=== PATIENT | male | born 1995 | race Caucasian/White ===

== ENCOUNTER 2016-08-13 18:32 | Emergency (ER) | payer OTHER ==
[~2016-08-13] VITALS: Ht 172.7 cm; Wt 72.6 kg
[~2016-08-13 18:32] MED LIST: PEPCID40 MG PO
[2016-08-13 18:36] VITALS: BP 146/83
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
== END 2016-08-13 19:54 ==
LOC: ERH 18:32
DX: S20.212A Contusion of left front wall of thorax, initial encounter (principal); W51.XXXA Accidental striking against or bumped into by another person, initial encounter; Y93.61 Activity, american tackle football; Y92.9 Unspecified place or not applicable
CPT/HCPCS: 71100-LT

== ENCOUNTER 2017-11-16 17:08 | Emergency (ER) | payer OTHER ==
[~2017-11-16] VITALS: Ht 177.8 cm; Wt 70.3 kg
[2017-11-16 17:13] VITALS: BP 117/73
--- NOTE | 2017-11-16 17:31 | ED GI/GU/ABDOMINAL COMPLAINT ---
History of Present Illness General Chief Complaint: Male Genitourinary Problems Stated Complaint: UNABLE TO URINATE X 3 DAYS PER PT Source: patient, family Exam Limitations: no limitations Vital Signs & Intake/Output Vital Signs & Intake/Output Vital Signs Date Time Temp Pulse Resp B/P B/P Pulse O2 O2 Flow FiO2 Mean Ox Delivery Rate 11/16 1713 98.7 76 16 117/73 97 Room Air ED Intake and Output 11/17 0000 11/16 1200 Intake Total 0 Output Total Balance 0 Intake, Oral 0 Patient 155 lb Weight Weight Reported by Patient Measurement Method Allergies Coded Allergies: No Known Allergies (01/27/17) Reconcile Medications Doxycycline Hyclate 100 MG TABLET 1 TAB PO BID urine infection Triage Note: PT STATES HE IS HAVING LEFT SIDED PAIN FOR THE PAST 4 DAYS. PT STATES HE HASN'T BEEN ABLE TO EMPTY HIS BLADDER STATES HE HAS USED THE BATHROOM ONCE IN FOUR DAYS. Triage Nurses Notes Reviewed? yes Onset: Gradual Duration: day(s): Timing: recent history Quality/Severity: moderate HPI: 22-year-old male presents emergency department complaining of urinary retention, urinary frequency, and dysuria x 3-4 days. Patient states that he feels the urge to urinate however only urinates "dribbles" and feels as though there is more urine left in his bladder. HE also reports left flank/upper abdominal pain for 3-4 days. He denies fevers, chills, testicular pain, vomiting. The patient is sexually active with girlfriend who is present during this evaluation. Past History Travel History Traveled to [place] past 21 day No Medical History Any Pertinent Medical History? 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 No Review of Systems Review of Systems Constitutional: Reports: no symptoms. EENTM: Reports: no symptoms. Respiratory: Reports: no symptoms. Cardiovascular: Reports: no symptoms. GI: Reports: see HPI. Genitourinary: Reports: see HPI. Musculoskeletal: Reports: no symptoms. Skin: Reports: no symptoms. Neurological/Psychological: Reports: no symptoms. Hematologic/Endocrine: Reports: no symptoms. Immunologic/Allergic: Reports: no symptoms. All Other Systems: Reviewed and Negative Physical Exam Physical Exam General Appearance: well developed/nourished, no apparent distress, alert, awake Head: atraumatic, normal appearance Eyes: Bilateral: normal appearance. Ears, Nose, Throat, Mouth: hearing grossly normal Neck: normal inspection, supple, full range of motion Respiratory: normal breath sounds, no respiratory distress, lungs clear Cardiovascular: regular rate/rhythm Gastrointestinal: normal bowel sounds, soft, no organomegaly, LUQ tenderness without rebound or gaurding Rectal: deferred Back: normal inspection, normal range of motion, no CVA tenderness Extremities: normal range of motion Neurologic/Psych: awake, alert, oriented x 3 Skin: intact, normal color, warm/dry Core Measures ACS in differential dx? No Sepsis Present: No Sepsis Focused Exam Completed? No Progress Differential Diagnosis: bowel obstruction, epididymitis, gastritis, hernia, orchitis, prostatitis, peptic ulcer, pyelonephritis, SBO, STD, ureterolithiasis, urinary retention, urethritis, UTI/pyelo Plan of Care: Orders Procedure Date/time Status Add-on Test (ER Only) 11/16 1855 Active CULTURE,URINE 11/16 182 Active Straight Cath 11/16 181 Active CHLAMYDIA-GC DNA PROBE 11/16 171 Active URINALYSIS 11/16 171 Complete COMPREHENSIVE METABOLIC PANEL 11/16 171 Complete CBC WITHOUT DIFFERENTIAL 11/16 1712 Complete Laboratory Tests 11/16/17 1825: Urine Color YEL, Urine Clarity CLEAR, Urine pH 7.0, Ur Specific [place] 1.025, Urine Protein NEG, Urine Ketones NEG, Urine Nitrite NEG, Urine Bilirubin NEG, Urine Urobilinogen 1.0, Ur Leukocyte Esterase NEG, Ur Microscopic EXAM NOT REQUIRED, Urine Hemoglobin NEG, Urine Glucose NEG 11/16/17 181: Anion Gap 11, Estimated GFR > 60, BUN/Creatinine Ratio 16.0, Glucose 89, Calcium 9.7, Total Bilirubin 1.2, AST 17, ALT 25, Alkaline Phosphatase 64, Total Protein 7.3, Albumin 4.7, Globulin 2.6, Albumin/Globulin Ratio 1.8, CBC w Diff NO MAN DIFF REQ, RBC 5.06, MCV 89.9, MCH 30.6, MCHC 34.0, RDW 13.1, MPV 9.7, Gran % 76.6 H, Lymphocytes % 16.0 L, Monocytes % 6.9, Eosinophils % 0.2, Basophils % 0.3, Absolute Granulocytes 6.3, Absolute Lymphocytes 1.3, Absolute Monocytes 0.6 , Absolute Eosinophils 0, Absolute Basophils 0 Microbiology 11/16 1824 URINE ROUT: Urine Culture - RES 11/16 1824 URINE ROUT: GC DNA Probe - RECD 11/16 1824 URINE ROUT: Chlamydia DNA Probe (SHIMON) - RECD Bladder scan shows 290cc urine. CT scan is unremarkable, no stones or bladder distention. PAtient able to urinate here in ED to give urine sample. UA does not show evidence of UTI. This patient is young, there is a suspicion for STD. Also possible prostatitis, patient offered rectal exam however he declines. He was treated with Rocephin IM here in the emergency department and doxycycline. Patient informed of risk of prostatitis and will follow up with [facility] practice. He will return here with worsening symptoms or concerns. PAtient agrees with plan of care. Dr. Painter agrees with this plan. Diagnostic Imaging: Viewed by Me: CT Scan. Discussed w/RAD: CT Scan. Radiology Impression: PATIENT: KERRI STOUT JR PRESENT AGE: 22 PATIENT ACCOUNT NO: [id number] : 94 LOCATION: [facility] ORDERING PHYSICIAN: Poly BAUM SERVICE DATE: 11/16/17 EXAM TYPE: CAT - CT ABD & PELVIS W/O IV CONTRAS EXAMINATION: CT ABDOMEN AND PELVIS WITHOUT CONTRAST CLINICAL INFORMATION: Left flank pain with dysuria COMPARISON: 01/27/2017 TECHNIQUE: Multidetector volumetric imaging was performed from the superior aspect of the liver through the pubic symphysis. Sagittal and coronal reformatted images were obtained on the technologist's workstation. DLP: 279 mGy -cm FINDINGS: LUNG BASES: The visualized lung bases are unremarkable. LIVER, GALLBLADDER, AND BILIARY TREE: The liver is normal in size, shape, and attenuation. No focal hepatic lesion or biliary ductal dilatation is present. The gallbladder is unremarkable with no evidence of radiopaque gallstones, gallbladder wall thickening, or obvious pericholecystic inflammatory changes. PANCREAS: Unremarkable. SPLEEN: Unremarkable. ADRENAL GLANDS: Unremarkable. KIDNEYS AND URETERS: The kidneys are normal in size, shape, and attenuation. No hydronephrosis, hydroureter, or calculi seen. No perinephric stranding. BLADDER: Unremarkable. GASTROINTESTINAL TRACT: The small and large bowel are unremarkable. The appendix is unremarkable. ABDOMINAL WALL: No significant hernia is appreciated. LYMPH NODES: Normal. VASCULAR: Unremarkable. PELVIC VISCERA: Unremarkable. OSSEOUS STRUCTURES: Unremarkable. IMPRESSION: Unremarkable CT of the abdomen and pelvis. No renal or ureteral calculi. No hydronephrosis. DICTATED BY: Gato Weldon MD DATE/TIME DICTATED:11/16/171803 EMERGENCY COMMUNICATIONS DISPATCHER:SHANIA DATE/TIME TRANSCRIBED:11/16/171803 CONFIDENTIAL, DO NOT COPY WITHOUT APPROPRIATE AUTHORIZATION. <Electronically signed in Other Vendor System> SIGNED BY: Gato Weldon MD 11/16/171811 Initial ED EKG: none Departure Departure Disposition: HOME OR SELF CARE Condition: Stable Clinical Impression Primary Impression: Dysuria Secondary Impressions: Urinary frequency Referrals: Patient Has No Primary Care Dr (PCP/Family) Additional Instructions: Take antibiotics as prescribed. Follow up with your primary care doctor. We will call you if the results of your urine testing is abnormal. Return if worsening symptoms or concerns. Please note that there might be incidental findings in your evaluation that are unrelated to the current emergency department visit. Please notify your primary care doctor about this emergency department visit in order to obtain and review all of the testing performed so that these incidental findings can be monitored as needed. If you had an x-ray performed, please understand that some fractures may not be seen on the initial set of x-rays. If your symptoms persist you might need a repeat set of x-rays to check for such a fracture. If you had a laceration evaluated, please understand that foreign bodies such as glass or wood may not be visible to the naked eye or on plain x-rays. If the wound becomes red, swollen, increasingly more painful or if there is any drainage from the wound, please have it reevaluated by a physician for the possibility of a retained foreign body. If you're unable to follow up as outlined in the discharge instructions please return to the emergency department. Thank you for choosing the [facility] Emergency Department for your care. It was a pleasure to serve you today. Departure Forms: Customer Survey General Discharge Information Prescriptions: Current Visit Scripts Doxycycline Hyclate 1 TAB PO BID #20 TAB
--- NOTE | 2017-11-16 18:12 | CT SCAN REPORT ---
EXAMINATION: CT ABDOMEN AND PELVIS WITHOUT CONTRAST CLINICAL INFORMATION: Left flank pain with dysuria COMPARISON: 01/27/2017 TECHNIQUE: Multidetector volumetric imaging was performed from the superior aspect of the liver through the pubic symphysis. Sagittal and coronal reformatted images were obtained on the technologist's workstation. DLP: 279 mGy-cm FINDINGS: LUNG BASES: The visualized lung bases are unremarkable. LIVER, GALLBLADDER, AND BILIARY TREE: The liver is normal in size, shape, and attenuation. No focal hepatic lesion or biliary ductal dilatation is present. The gallbladder is unremarkable with no evidence of radiopaque gallstones, gallbladder wall thickening, or obvious pericholecystic inflammatory changes. PANCREAS: Unremarkable. SPLEEN: Unremarkable. ADRENAL GLANDS: Unremarkable. KIDNEYS AND URETERS: The kidneys are normal in size, shape, and attenuation. No hydronephrosis, hydroureter, or calculi seen. No perinephric stranding. BLADDER: Unremarkable. GASTROINTESTINAL TRACT: The small and large bowel are unremarkable. The appendix is unremarkable. ABDOMINAL WALL: No significant hernia is appreciated. LYMPH NODES: Normal. VASCULAR: Unremarkable. PELVIC VISCERA: Unremarkable. OSSEOUS STRUCTURES: Unremarkable. IMPRESSION: Unremarkable CT of the abdomen and pelvis. No renal or ureteral calculi. No hydronephrosis.
[2017-11-16 18:22] LABS: ABSOLUTE BASOPHIL COUNT 0 /CUMM (0.0-0.2); ABSOLUTE EOSINOPHIL COUNT 0 /CUMM (0.0-0.7); ABSOLUTE GRANULOCYTE CT 6.3 /CUMM (1.4-6.5); ABSOLUTE LYMPH COUNT 1.3 /CUMM (1.2-3.4); ABSOLUTE MONOCYTE COUNT 0.6 /CUMM (0.10-0.60); BASOPHIL % 0.3 % (0.0-2.0); EOSINOPHIL % 0.2 % (0-5); GRANULOCYTE % 76.6 % (42.2-75.2); HEMATOCRIT 45.5 % (42-52); MEAN CORPUSCULAR HGB 30.6 PG (27.0-31.0); MEAN CORPUSCULAR VOLUME 89.9 FL (80.0-94.0); MEAN PLATELET VOLUME 9.7 FL (7.4-10.4); PLATELET COUNT 203 /CUMM (130-400); RBC DISTRIBUTION WIDTH 13.1 % (11.5-14.5); RED BLOOD CELL CT 5.06 /CUMM (4.70-6.10); WHITE BLOOD CELL COUNT 8.2 /CUMM (4.8-10.8)
[2017-11-16] MEDS ORDERED: DOXYCYCLINE HY100 M4 PO (19:36)
== END 2017-11-16 20:04 ==
LOC: ERH 17:08
PROVIDERS: Physician Assistant
DX: R35.0 Frequency of micturition (principal); R30.0 Dysuria; J45.909 Unspecified asthma, uncomplicated; F17.210 Nicotine dependence, cigarettes, uncomplicated; F10.10 Alcohol abuse, uncomplicated
CPT/HCPCS: 74176; 81003; 87086; 87491; 87591; 96372; J0696; J1885; J2001